=== PATIENT | male | born 1975 | race Caucasian/White ===

== ENCOUNTER → 2018-08-30 | Outpatient (CLI) | payer BC ==
[2018-08-30 16:30] LABS: Albumin 4.7 g/dL (3.80-4.90); Albumin/Globulin Ratio 2.04 (1.60-3.17); Anion Gap 9.6 mmol/L (4.00-12.00); Calcium 9.8 mg/dL (8.7-10.3); Carbon Dioxide 25.4 mmol/L (21.6-31.8); Globulin 2.3 g/dL (1.6-3.3); LDL Cholesterol,Calculated 111.8 mg/dL (0.0-131.0); Total Bilirubin 1.3 mg/dL (0.2-1.2); VLDL Calculation 46.2 mg/dL (5.00-40.00)
== END | disposition home or self-care (01) ==
LOC: LABWHC1 10:58
PROVIDERS: ATTEND Internal Medicine Interventional Cardiology
DX: E78.2 Mixed hyperlipidemia (principal)
CPT/HCPCS: 36415; 80053; 80061

== ENCOUNTER → 2018-10-26 | Outpatient (CLI) | payer BC ==
--- NOTE | 2018-10-26 08:32 | CT ---
EXAMINATION TYPE: CT chest w con DATE OF EXAM: 10/26/2018 COMPARISON: 10/29/2015 HISTORY: Follow up pulmonary nodule CT DLP: 475.5 mGycm. Automated Exposure Control for Dose Reduction was Utilized. TECHNIQUE: CT scan of the thorax is performed following with IV Contrast, patient injected with 100 mL of Isovue 300. FINDINGS: LUNGS: There is continued stability of the well circumscribed 7 x 7 mm right lower lobe pulmonary nod ule at the costophrenic angle on image 40. There is also stability of a 3 mm solid pulmonary nodule i n the right lower lobe on image 33. Additionally the 4 mm solid pulmonary nodule on image 25 is stabl e in the right upper lobe. A triangular possible intrafissural lymph node on the left is also stable marked on image 33.a 4 mm pulmonary nodule in the lingula on image 37 appears less conspicuous than o n the prior. There is a stable 5 mm elongated pulmonary nodule in the left lower lobe on image 30. No new suspicious pulmonary nodules or masses are seen. Mild paraseptal emphysematous changes are seen at the lung apices. No focal consolidation or pleural effusion is noted. Main tracheal bronchial tree is patent. MEDIASTINUM: There are no greater than 1 cm hilar or mediastinal lymph nodes. Prominent lymph nodes m easuring up to 1.0 cm in short axis are unchanged from the prior. No pericardial effusion is seen. OTHER: The liver is diffusely hypoattenuated compatible with hepatic steatosis. This limits evaluatio n for underlying hepatic masses. Very small hiatal hernia is evident. Mild multilevel degenerative ch anges of the spine. IMPRESSION: 1. Stability of the bilateral subcentimeter pulmonary nodules in comparison to the exam of 10/29/2015 confers benignity. 2. Borderline lymph nodes in the mediastinum are also stable and do not meet criteria for adenopathy. 3. Incidentally noted hepatic steatosis and small hiatal hernia.
== END | disposition home or self-care (01) ==
LOC: RADCTMAIN 07:18
PROVIDERS: ATTEND Family Medicine
DX: R91.8 Other nonspecific abnormal finding of lung field (principal)
CPT/HCPCS: 71260; Q9967

== ENCOUNTER 2020-12-22 16:00 | Emergency (ER) | payer BC ==
[2020-12-22 16:07] VITALS: RESP 18; TEMP 98.3
[2020-12-22] MEDS ORDERED: diphenhydrAMINE 50 MG/ML 1 ML VIAL IVP STA (16:22)
[2020-12-22] MEDS ORDERED: ASPIRIN 81 MG PO STA (16:22)
[2020-12-22] MEDS ORDERED: MORPHINE SULFATE 4 MG/ML SYRINGE IV STA (16:22)
[2020-12-22] MEDS ORDERED: FAMOTIDINE 20 MG/2 ML VIAL IV STA (16:23)
[2020-12-22] MEDS ORDERED: ONDANSETRON 4 MG/2 ML VIAL IVP STA (16:23)
[2020-12-22] MEDS ORDERED: MAG HYDROX/AL HYDROX/SIMETH 30 ML CUP PO PRN (16:23)
--- NOTE | 2020-12-22 16:29 | ED ---
General Adult HPI - General Chief complaint: Chest Pain Stated complaint: chest pain Time Seen by Provider: 12/22/20 16:06 Source: patient, EMS, RN notes reviewed, old records reviewed Mode of arrival: EMS - History of Present Illness Initial comments: Patient is a 44-year-old male with past medical history remarkable for hypertension, and former tobacco use who has extensive family medical history of cardiac disease including a twin sister the prior [place] who presents emergency Department complaining of a one-day history of chest pain. Patient states the first dose of pain yesterday describes it as a strange pressure, burning sensation over the lower sternum. He states it did not radiate. It self resolved after he passed gas. He states that today he had recurrence of the chest pain. Describes it similarly, as it is not radiating. He states that also resolved on its own. He tends to take as reflux medication, Tums, with minimal improvement. He denies any nausea or vomiting. Denies any headache, blurry vision, dyspnea. He denies any fevers or chills or cough. Patient otherwise has no acute complaints at this time. He denies any weakness or numbness. - Related Data Home Medications Medication Instructions Recorded Confirmed Losartan [Cozaar] 50 mg PO DAILY 01/16/15 01/18/15 Previous Rx's Medication Instructions Recorded Famotidine [Pepcid] 20 mg PO DAILY #30 tablet 12/22/20 Mag Hydrox/Al Hydrox/Simeth 30 ml PO BID PRN #500 ml 12/22/20 [Maalox] Allergies Allergy/AdvReac Type Severity Reaction Status Date / Time nitrous oxide [Nitrous Oxide] Allergy Unknown Verified 01/16/15 16:17 Review of Systems ROS Statement: Those systems with pertinent positive or pertinent negative responses have been documented in the HPI. Review of Systems: CONST: Denies fever EYES: Denies blurry vision ENT: Denies nasal congestion C/V: Endorses chest pain RESP: Denies shortness of breath GI: Denies abdominal pain : Denies dysuria SKIN: Denies rash. MSK: Denies joint pain. NEURO: Denies headache ROS Other: All systems not noted in ROS Statement are negative. Past Medical History Past Medical History: Hyperlipidemia, Hypertension History of Any Multi-Drug Resistant Organisms: None Reported Past Surgical History: Orthopedic Surgery Past Psychological History: No Psychological Hx Reported Smoking Status: Former smoker Past Alcohol Use History: Occasional Past Drug Use History: None Reported General Exam - General Exam Comments Initial Comments: General: Appears in no acute distress. HEAD: Normal with no signs of head trauma. EYES: PERRLA, EOMI, conjunctiva normal, no discharge. ENT: Hearing grossly intact, normal oropharynx. RESPIRATORY: Clear breath sounds bilaterally. No wheezes, rales, or rhonchi. C/V: Regular rate and rhythm. S1 and S2 auscultated, no edema, peripheral pulses 2+ and intact throughout. Patient's chest pain is nonreproducible on palpation. ABD: Abd is soft, nontender, nondistended EXT: Normal range of motion, no obvious deformity SKIN: No rashes or lesions observed on exposed skin. NEURO: Alert and oriented 4. No focal strength or sensory deficits. Course Vital Signs 12/22/20 12/22/20 16:01 17:53 Temperature 98.3 F Pulse Rate 94 80 Respiratory 18 18 Rate Blood Pressure 143/97 140/84 O2 Sat by Pulse 96 95 Oximetry Medical Decision Making - Medical Decision Making Based on the patient's presentation and physical exam, I'm concerned for possible cardiac cause for his chest pain, particularly with his family medical history of cardiac disease. Therefore we will obtain a cardiac workup including troponin, EKG, chest x-ray. Patient will be connected to continuous cardiac monitoring while here in the emergency department. He will be given aspirin. Patient's pain has been related to acid reflux type symptoms, and therefore we will provide him with IV Benadryl, famotidine, morphine as well as Zofran. Patient was in agreement this plan. Patient's EKG revealed no signs concerning for acute ischemia. Chest x-ray revealed no acute cardio pulmonary process. Laboratory studies revealed nail elevated ALT is 62 which is mild as well as a negative troponin. Remainder of his labs are unremarkable. Reevaluation come patient's discomfort is improved. He states it is completely resolved. I discussed with the patient results of his lavatory studies and workup and explained that I believe is safe for him to be discharged home at this time. Recommended close follow-up with his PCP. Patient was in agreement with this plan. Patient was therefore discharged home. I will provide the patient with a prescription for famotidine, Maalox. I instructed the patient to follow up with their PCP in the next 3 days. I explained that the patient should return to the emergency department if they experience any worsening symptoms. Strict return precautions were discussed with the patient. The patient expressed understanding of these instructions. I answered all questions that the patient had. The patient was discharged home in good condition with their prescriptions and follow up information. - Lab Data Result diagrams: 12/22/20 16:22 12/22/20 16:22 Lab Results 12/22/20 12/22/20 12/22/20 Range/Units 16:22 16:22 16:22 WBC 6.6 (3.8-10.6) k/uL RBC 4.89 (4.30-5.90) m/uL Hgb 15.2 (13.0-17.5) gm/dL Hct 43.4 (39.0-53.0) % MCV 88.7 (80.0-100.0) fL MCH 31.1 (25.0-35.0) pg MCHC 35.1 (31.0-37.0) g/dL RDW 12.8 (11.5-15.5) % Plt Count 263 (150-450) k/uL MPV 9.9 Neutrophils % 57 % Lymphocytes % 33 % Monocytes % 6 % Eosinophils % 2 % Basophils % 1 % Neutrophils # 3.8 (1.3-7.7) k/uL Lymphocytes # 2.2 (1.0-4.8) k/uL Monocytes # 0.4 (0-1.0) k/uL Eosinophils # 0.1 (0-0.7) k/uL Basophils # 0.1 (0-0.2) k/uL PT 10.7 (9.0-12.0) sec INR 1.0 (<1.2) APTT 22.0 (22.0-30.0) sec Sodium 141 (137-145) mmol/L Potassium 4.1 (3.5-5.1) mmol/L Chloride 106 (98-107) mmol/L Carbon Dioxide 24 (22-30) mmol/L Anion Gap 11 mmol/L BUN 13 (9-20) mg/dL Creatinine 1.00 (0.66-1.25) mg/dL Est GFR (CKD-EPI)AfAm >90 (>60 ml/min/1.73 sqM) Est GFR (CKD-EPI)NonAf >90 (>60 ml/min/1.73 sqM) Glucose 102 H (74-99) mg/dL Calcium 9.8 (8.4-10.2) mg/dL Magnesium 1.9 (1.6-2.3) mg/dL Total Bilirubin 1.0 (0.2-1.3) mg/dL AST 41 (17-59) U/L ALT 62 H (4-49) U/L Alkaline Phosphatase 95 (38-126) U/L Troponin I (0.000-0.034) ng/mL Total Protein 7.1 (6.3-8.2) g/dL Albumin 4.5 (3.5-5.0) g/dL 12/22/20 Range/Units 16:22 WBC (3.8-10.6) k/uL RBC (4.30-5.90) m/uL Hgb (13.0-17.5) gm/dL Hct (39.0-53.0) % MCV (80.0-100.0) fL MCH (25.0-35.0) pg MCHC (31.0-37.0) g/dL RDW (11.5-15.5) % Plt Count (150-450) k/uL MPV Neutrophils % % Lymphocytes % % Monocytes % % Eosinophils % % Basophils % % Neutrophils # (1.3-7.7) k/uL Lymphocytes # (1.0-4.8) k/uL Monocytes # (0-1.0) k/uL Eosinophils # (0-0.7) k/uL Basophils # (0-0.2) k/uL PT (9.0-12.0) sec INR (<1.2) APTT (22.0-30.0) sec Sodium (137-145) mmol/L Potassium (3.5-5.1) mmol/L Chloride (98-107) mmol/L Carbon Dioxide (22-30) mmol/L Anion Gap mmol/L BUN (9-20) mg/dL Creatinine (0.66-1.25) mg/dL Est GFR (CKD-EPI)AfAm (>60 ml/min/1.73 sqM) Est GFR (CKD-EPI)NonAf (>60 ml/min/1.73 sqM) Glucose (74-99) mg/dL Calcium (8.4-10.2) mg/dL Magnesium (1.6-2.3) mg/dL Total Bilirubin (0.2-1.3) mg/dL AST (17-59) U/L ALT (4-49) U/L Alkaline Phosphatase (38-126) U/L Troponin I <0.012 (0.000-0.034) ng/mL Total Protein (6.3-8.2) g/dL Albumin (3.5-5.0) g/dL - EKG Data -: EKG Interpreted by Me EKG Comments: 12-lead Electrocardiogram Interpretation Note EKG was reviewed and interpreted by myself. 12-lead ECG performed at 1605 is interpreted by me as revealing normal sinus rhythm at a rate of 83 beats per m inute. [place] is normal. MA interval is 172 ms, QRS duration is 90 ms, QTc is 451 ms.. There were no ST or T wave abnormalities to suggest myocardial ischemia or injury. R wave progression across the precordium was satisfactory. By my interpretation this EKG is non-diagnostic for acute ischemia. Disposition Clinical Impression: Chest pain of unknown etiology Disposition: HOME SELF-CARE Condition: Good Instructions (If sedation given, give patient instructions): Chest Pain (ED), Costochondritis (ED) Prescriptions: Mag Hydrox/Al Hydrox/Simeth [Maalox] 30 ml PO BID PRN #500 ml PRN Reason: Gi Upset Famotidine [Pepcid] 20 mg PO DAILY #30 tablet Is patient prescribed a controlled substance at d/c from ED?: No Referrals: Quan Wilson DO [Primary Care Provider] - 1-2 days
[2020-12-22 16:58] LABS: Basophils # (A) 0.1 k/uL (0-0.2); Basophils % (A) 1 %; Eosinophils # (A) 0.1 k/uL (0-0.7); Eosinophils % (A) 2 %; HCT 43.4 % (39.0-53.0); HGB 15.2 gm/dL (13.0-17.5); Lymphocytes # (A) 2.2 k/uL (1.0-4.8); Lymphocytes % (A) 33 %; MCH 31.1 pg (25.0-35.0); MCHC 35.1 g/dL (31.0-37.0); MCV 88.7 fL (80.0-100.0); Mean Platelet Volume 9.9; Monocytes # (A) 0.4 k/uL (0-1.0); Monocytes % (A) 6 %; Neutrophils # (A) 3.8 k/uL (1.3-7.7); Neutrophils % (A) 57 %; Platelet Count 263 k/uL (150-450); RBC 4.89 m/uL (4.30-5.90); RDW 12.8 % (11.5-15.5); WBC 6.6 k/uL (3.8-10.6)
[2020-12-22 17:10] LABS: Prothrombin Time 10.7 sec (9.0-12.0)
[2020-12-22 17:11] LABS: ALT 62 U/L (4-49); AST 41 U/L (17-59); African American GFR (CKD) >90 (>60 ml/min/1.73 sqM); Albumin 4.5 g/dL (3.5-5.0); Alkaline Phosphatase 95 U/L (38-126); Anion Gap 11 mmol/L; Blood Urea Nitrogen 13 mg/dL (9-20); Calcium 9.8 mg/dL (8.4-10.2); Carbon Dioxide 24 mmol/L (22-30); Chloride 106 mmol/L (98-107); Glucose 102 mg/dL (74-99); Magnesium 1.9 mg/dL (1.6-2.3); Non-African American GFR(CKD) >90 (>60 ml/min/1.73 sqM); Potassium 4.1 mmol/L (3.5-5.1); Sodium 141 mmol/L (137-145); Total Protein 7.1 g/dL (6.3-8.2)
--- NOTE | 2020-12-22 17:26 | XR ---
EXAMINATION TYPE: XR chest 2V DATE OF EXAM: 12/22/2020 COMPARISON: 03/13/2011 HISTORY: Right-sided rib pain TECHNIQUE: 2 views FINDINGS: Heart and mediastinum are normal. Lungs are clear. Diaphragm is normal. Bony thorax appears normal. There are chest leads. IMPRESSION: Normal chest. Normal heart. No change.
[2020-12-22 17:54] VITALS: BP 140/84; PULSE 80
== END 2020-12-22 17:54 | disposition home or self-care (01) ==
LOC: EC 16:00
DX: R07.89 Other chest pain (principal); R20.8 Other disturbances of skin sensation; I10 Essential (primary) hypertension; Z87.891 Personal history of nicotine dependence; Z79.899 Other long term (current) drug therapy; Z88.8 Allergy status to other drugs, medicaments and biological substances
CPT/HCPCS: 36415; 93005; 80053; 83735; 84484; 85025; 85610; 85730; 71046; 96374; 96375; 99285; J1200; J2405

== ENCOUNTER → 2022-04-28 | Outpatient (CLI) | payer BC ==
--- NOTE | 2022-04-28 16:25 | XR ---
INDICATION: Patient age:Male; 46 years old; Reason for study: Z18.10 RETAINED METAL FRAGMENTS, UNSPECIFIED; [facility]. COMPARISON: None. TECHNIQUE: 2 views the orbits. FINDINGS: Radiographic evaluation of the orbits fail to demonstrate evidence of an orbital fracture. There is n o radiopaque foreign body identified. The adjacent paranasal sinuses are well aerated an without evid ence of intra-cavitary fluid accumulation. IMPRESSION: No radiographic evidence of radiopaque foreign body.
== END | disposition home or self-care (01) ==
LOC: RADXRMAIN 16:02
PROVIDERS: ATTEND Family Medicine
DX: Z18.10 Retained metal fragments, unspecified (principal)
CPT/HCPCS: 70030

== ENCOUNTER → 2022-05-01 | Outpatient (CLI) | payer BC ==
--- NOTE | 2022-05-02 04:00 | MR ---
EXAMINATION TYPE: MR lumbar spine wo con DATE OF EXAM: 05/01/2022 COMPARISON: None HISTORY: Tingling in feet. Multiplanar multiecho imaging of the lumbar spine performed with no contrast. The lumbar vertebrae have normal alignment. There is slight narrowing and decreased signal in the dis ks from L3 to S1. There is minimal posterior disc bulge at levels from L3 to S1. There is no evidence of any significant spinal stenosis. No lumbar paraspinal mass. The sacroiliac joints appear intact. The neural foramina are fairly well-maintained. There is no compression fracture. IMPRESSION: Minor degenerative disc changes with posterior minimal disc bulging from L3 to S1. No fracture seen. No spinal stenosis.
== END | disposition home or self-care (01) ==
LOC: RADMRIMAIN 17:41
PROVIDERS: ATTEND Family Medicine
DX: M51.16 Intervertebral disc disorders with radiculopathy, lumbar region (principal); R20.2 Paresthesia of skin
CPT/HCPCS: 72148